=== PATIENT | male | born 1935 | race Hispanic/Latino ===

== ENCOUNTER 2018-09-21 17:46 | Emergency (ER) | payer MEDICARE, MEDICAID ==
[~2018-09-21] VITALS: Ht 177.8 cm; Wt 72.0 kg
[2018-09-21 19:01] LABS: HEMATOCRIT 44.5 % (39.0-50.0); HEMOGLOBIN 14.4 g/dl (14.0-18.0); IMMATURE GRANULOCYTES 0.3 % (0.0-5.0); MEAN CELL VOLUME 85.1 fL CALC (80.0-100.0); MEAN CORPUSCULAR HGB 27.5 pG CALC (26.0-32.0); MEAN CORPUSCULAR HGB CONC 32.4 g/L CALC (32.0-36.0); NEUT# 6.28 thou/uL (1.82-7.42); RED BLOOD COUNT 5.23 mill/uL (4.70-6.10); RED CELL DISTRI WIDTH 12.4 % (11.5-15.5)
[2018-09-21] MEDS ORDERED: ATORVASTATIN CA10 MG PO (19:09)
[2018-09-21] MEDS ORDERED: OMEPRAZOLE20 MG PO (19:10)
[2018-09-21] MEDS ORDERED: METFORMIN HCL500 M1 PO (19:10)
[2018-09-21 19:14] LABS: ALBUMIN 3.6 g/dL (3.2-5.0); ALKALINE PHOSPHATASE 88 u/l (38-126); ANION GAP 14 (6-22 (CALC)); BILIRUBIN, TOTAL 1.6 mg/dL (0.0-1.4); BUN 17 mg/dL (8-23); BUN/CREATININE RATIO 18 (12-20 (CALC)); CARBON DIOXIDE 26 mmol/l (22-30); CHLORIDE 102 mmol/l (95-108); GFR > 60 ML/MIN (>=60 (CALC)); GFR FOR AFR.AMER. > 60 ML/MIN (>=60 (CALC)); LIPASE 112 u/l (23-300); POTASSIUM 3.8 mmol/l (3.5-5.1); SGOT/AST 17 u/l (19-48); SODIUM 138 mmol/l (137-146); TOTAL PROTEIN 6.2 g/dL (6.3-8.2)
[2018-09-21] MEDS ORDERED: REGLAN10 MG PO (20:24)
[2018-09-21 20:34] VITALS: BP 111/59
== END 2018-09-21 20:34 | disposition home or self-care (01) ==
LOC: ED 17:46
DX: R05 Cough (principal); R11.2 Nausea with vomiting, unspecified; E11.9 Type 2 diabetes mellitus without complications; I10 Essential (primary) hypertension